=== PATIENT | female | born 1975 | race Asian ===

== ENCOUNTER 2017-05-30 10:29 | Emergency (ER) | payer OTHER, MEDICAID ==
[~2017-05-30] VITALS: Ht 157.5 cm; Wt 61.4 kg
[2017-05-30 12:20] VITALS: BP 127/78
[2017-05-30 12:41] LABS: INFLUENZA TYPE A POSITIVE FOR TYPE A (NEGATIVE); INFLUENZA TYPE B NEGATIVE FOR TYPE B (NEGATIVE)
== END 2017-05-30 13:00 | disposition home or self-care (01) ==
LOC: EMS 10:31
DX: J10.1 Influenza due to other identified influenza virus with other respiratory manifestations (principal); R53.1 Weakness; R03.0 Elevated blood-pressure reading, without diagnosis of hypertension
CPT/HCPCS: 71046; 87804; 99285